=== PATIENT | female | born 1985 | race Caucasian/White ===

== ENCOUNTER → 2018-10-19 | Outpatient (CLI) | payer OTHER ==
[~2018-10-19] MED LIST: ACET50TA PO; ANUS2.5C2 TOP; IBUP80TA PO; PERCOCET PO
--- NOTE | 2018-10-20 01:18 | REP ---
Clinical: Pain. Technique: AP, lateral, bilateral oblique views of the right hand. Findings: Mild increased sclerosis and joint space narrowing at the first metacarpophalangeal joint and radiocarpal line noted. The remainder of the joint spaces and osseous structures are normal for age. The surrounding soft tissues are grossly unremarkable. Impression: Mild degenerative changes suggested at the first MCP and radiocarpal joint. Electronically Signed by Cesar Bhatia MD 10/20/2018 01:10 A
== END ==
LOC: M WUC 13:09
PROVIDERS: ATTEND Physician Assistant
DX: M19.031 Primary osteoarthritis, right wrist (principal); M25.541 Pain in joints of right hand

== ENCOUNTER 2018-10-27 10:20 | Emergency (ER) | payer OTHER ==
[~2018-10-27] VITALS: Ht 162.6 cm; Wt 50.9 kg
[2018-10-27 10:21] VITALS: BP 113/57
== END 2018-10-27 11:00 | disposition home or self-care (01) ==
LOC: M ED 10:20
DX: I73.00 Raynaud's syndrome without gangrene (principal); F32.9 Major depressive disorder, single episode, unspecified; J45.909 Unspecified asthma, uncomplicated; Z88.5 Allergy status to narcotic agent; Z91.040 Latex allergy status

== ENCOUNTER 2018-10-30 17:59 | Emergency (ER) | payer OTHER ==
[~2018-10-30] VITALS: Ht 162.6 cm; Wt 50.0 kg
[2018-10-30] MEDS ORDERED: CYCL10TA (18:07)
[2018-10-30] MEDS ORDERED: FLUO20SO (18:07)
[2018-10-30] MEDS ORDERED: IBUP100S5 (18:07)
[2018-10-30] MEDS ORDERED: KETOROLAC 30 MG/ML VIAL (J1885) IV ONE (20:00)
[2018-10-30] MEDS ORDERED: diphenhydrAMINE INJ 50MG/ML VIAL (J1200) IV ONE (20:00)
[2018-10-30] MEDS ORDERED: METOCLOPRAMIDE INJ 10MG/2ML VIAL (J2765) IV ONE (20:00)
[2018-10-30 21:20] VITALS: BP 128/71
== END 2018-10-30 21:20 | disposition home or self-care (01) ==
LOC: M ED 17:59
DX: G43.909 Migraine, unspecified, not intractable, without status migrainosus (principal); T43.225A Adverse effect of selective serotonin reuptake inhibitors, initial encounter; I10 Essential (primary) hypertension; F17.210 Nicotine dependence, cigarettes, uncomplicated; Z88.5 Allergy status to narcotic agent; Z88.8 Allergy status to other drugs, medicaments and biological substances; Z91.040 Latex allergy status; Z79.899 Other long term (current) drug therapy
CPT/HCPCS: 96374; 96375; 99284; J1200; J1885; J2765

== ENCOUNTER → 2019-02-28 | Outpatient (CLI) | payer OTHER ==
[~2019-02-28] MED LIST changes: -ACET50TA PO; +CYCL10TA; +FLUO20SO; +IBUP100S65; +MAPA500T17 PO; +OXYC1TAB23 PO; -PERCOCET PO
--- NOTE | 2019-02-28 10:31 | REP ---
MAXILLOFACIAL CT STUDY: HISTORY: Nasal polyp. No comparison maxillofacial imaging. CT FINDINGS: Preliminary digital barking machine feeder radiograph and axial CT images demonstrate a right periorbital subcutaneous jewelry. No intraorbital soft tissue lesion is seen. The visualized intracranial structures are unremarkable. The left frontal sinus is clear. The right frontal sinus is hypoplastic. Ethmoid, sphenoid, and maxillary sinuses are clear. The right maxillary sinus is developmentally small compared to the left. There is mucosal thickening obscuring the ostiomeatal complex on the left and to a lesser extent on the right. The anterior nasal septum bows somewhat to the right. The more posterior segment of the bony nasal septum deviates somewhat to the left with a small beak. Nasal turbinate soft tissues are unremarkable. No nasal polyp is visualized. The nasal ethmoid recesses appear clear. IMPRESSION: No nasal polyp seen. Some nasal septal deviation as above. Asymmetric size maxillary sinuses. Mucosal thickening obscures the ostiomeatal complexes bilaterally. Electronically Signed by Cameron Salmon MD 02/28/2019 11:14 A
== END ==
LOC: M RAD 09:33
PROVIDERS: ATTEND Otolaryngology
DX: R59.0 Localized enlarged lymph nodes (principal)

== ENCOUNTER 2019-07-04 20:30 | Emergency (ER) | payer OTHER ==
[~2019-07-04] VITALS: Ht 162.6 cm; Wt 52.2 kg
[2019-07-04 23:44] VITALS: BP 114/67
[2019-07-04] MEDS ORDERED: KETOROLAC 60 MG/2 ML VIAL (J1885) IM ONE (23:45)
[2019-07-04] MEDS ORDERED: ACETAMINOPHEN/CODEINE 300MG/30MG 12.5 ML UDC PO ONE ×2 (23:45)
== END 2019-07-05 00:33 | disposition home or self-care (01) ==
LOC: M ED 20:30
DX: K02.9 Dental caries, unspecified (principal); K08.89 Other specified disorders of teeth and supporting structures; F17.200 Nicotine dependence, unspecified, uncomplicated; Z91.040 Latex allergy status; Z88.8 Allergy status to other drugs, medicaments and biological substances; Z88.5 Allergy status to narcotic agent
CPT/HCPCS: 96372; 99283; J1885

== ENCOUNTER 2019-07-09 10:12 | Emergency (ER) | payer OTHER ==
[~2019-07-09] VITALS: Ht 165.1 cm; Wt 50.6 kg
[2019-07-09 10:13] VITALS: BP 119/58
--- NOTE | 2019-07-09 11:08 | REP ---
Clinical: Pain. Technique: Internal rotation, external rotation, and Y view left shoulder. Findings: No acute fracture or dislocation. The acromioclavicular and glenohumeral joints are intact. No periarticular calcifications or degenerative changes are appreciated. Sub acromial space is normal. Surrounding soft tissues are unremarkable. Impression: Normal left shoulder radiographs. Electronically Signed by Cesar Bhatia MD 07/09/2019 10:59 A
== END 2019-07-09 11:55 | disposition home or self-care (01) ==
LOC: M ED 10:12
DX: S46.811A Strain of other muscles, fascia and tendons at shoulder and upper arm level, right arm, initial encounter (principal); W22.09XA Striking against other stationary object, initial encounter; Y92.59 Other trade areas as the place of occurrence of the external cause; Y93.89 Activity, other specified; Y99.0 Civilian activity done for income or pay; F17.200 Nicotine dependence, unspecified, uncomplicated; Z88.8 Allergy status to other drugs, medicaments and biological substances; Z91.040 Latex allergy status; Z88.5 Allergy status to narcotic agent

== ENCOUNTER 2019-10-20 22:21 | Emergency (ER) | payer OTHER ==
[~2019-10-20] VITALS: Ht 165.1 cm; Wt 49.2 kg
[2019-10-20] MEDS ORDERED: KETOROLAC 30 MG/ML VIAL (J1885) IV ONE (23:00)
[2019-10-20] MEDS ORDERED: NS 1,000 ML IV ONE (23:00)
--- NOTE | 2019-10-20 23:45 | REPVR ---
PROCEDURE INFORMATION: Exam: US Retroperitoneal Limited, Kidneys Exam date and time: 10/20/2019 11:18 PM Age: 33 years old Clinical indication: Abdominal pain; Flank; Right; Additional info: Right flank pain TECHNIQUE: Imaging protocol: Real-time ultrasound of the retroperitoneum with image documentation. Examination was focused on the kidneys. COMPARISON: No relevant prior studies available. FINDINGS: Right kidney: The right kidney measures 10.8 cm in its cephalocaudad dimension and 4.7 x 4.1 cm in diameter. No mass, cyst or hydronephrosis. No calculi. Left kidney: The left kidney measures 10.5 cm in its cephalocaudad dimension and 4.9 x 3.2 cm in diameter. No mass, cyst or hydronephrosis. No calculi. Bladder: The urinary bladder is incompletely filled. A left ureteral jet is seen. IMPRESSION: Negative renal sonogram. No hydronephrosis and no stones are seen. Electronically signed by: Buzz Rubio On 10/20/2019 23:44:05 PM
[2019-10-21 00:04] LABS: ALBUMIN 4.6 GM/DL (3.2-5.2); BILIRUBIN,DIRECT 0.1 MG/DL (0.0-0.2); BILIRUBIN,TOTAL 0.2 MG/DL (0.2-1.0); TOTAL PROTEIN 7.9 GM/DL (6.4-8.2)
[2019-10-21 00:08] LABS: BASO % 0.6 % (0.0-1.0); EOS # 0.1 10^3/uL (0.0-0.5); HEMATOCRIT 44.7 % (36.0-47.0); HEMOGLOBIN 14.2 g/dl (12.0-15.5); LYMPH # 1.6 10^3/uL (1.5-5.0); LYMPH % 31.6 % (24.0-44.0); MEAN CORPUSCULAR HEMOGLOBIN 29.5 pg (27.0-33.0); MEAN CORPUSCULAR HGB CONC 31.8 g/dl (32.0-36.5); MEAN CORPUSCULAR VOLUME 92.9 fl (80.0-96.0); MONO # 0.5 10^3/uL (0.0-0.8); MONO % 9.1 % (0.0-5.0); NEUTROPHILS # 2.9 10^3/uL (1.5-8.5); NEUTROPHILS % 56.5 % (36.0-66.0); PLATELET COUNT, AUTOMATED 203 10^3/uL (150-450); RED BLOOD COUNT 4.81 10^6/uL (4.00-5.40); WHITE BLOOD COUNT 5.1 10^3/uL (4.0-10.0)
[2019-10-21] MEDS ORDERED: CYCL5TAB PO (00:36)
[2019-10-21] MEDS ORDERED: GABA-1171 PO (00:36)
[2019-10-21] MEDS ORDERED: KETO10TAB PO (00:36)
[2019-10-21 00:51] VITALS: BP 105/66
== END 2019-10-21 00:55 | disposition home or self-care (01) ==
LOC: M ED 22:21
DX: M54.31 Sciatica, right side (principal); G43.909 Migraine, unspecified, not intractable, without status migrainosus; G89.29 Other chronic pain; J45.909 Unspecified asthma, uncomplicated; F17.200 Nicotine dependence, unspecified, uncomplicated; Z88.5 Allergy status to narcotic agent; Z88.8 Allergy status to other drugs, medicaments and biological substances; Z91.040 Latex allergy status
CPT/HCPCS: 76775; 80047; 80076; 81001; 83690; 84702; 85025; 96374; 99284; J1885

== ENCOUNTER 2019-11-20 17:45 | Emergency (ER) | payer OTHER ==
[~2019-11-20] VITALS: Ht 165.1 cm; Wt 50.6 kg
[~2019-11-20 17:45] MED LIST changes: +CYCL5TAB PO; +GABA-1171 PO; +KETO10TAB PO
[2019-11-20] MEDS ORDERED: PYRI1TAB5 PO (19:32)
[2019-11-20] MEDS ORDERED: BACT800T5 PO (19:32)
[2019-11-20 19:34] VITALS: BP 118/65
[2019-11-20] MEDS ORDERED: SULF200S10 PO (19:37)
== END 2019-11-20 19:41 | disposition home or self-care (01) ==
LOC: M ED 17:45
DX: N39.0 Urinary tract infection, site not specified (principal); F17.200 Nicotine dependence, unspecified, uncomplicated; Z88.5 Allergy status to narcotic agent; Z88.8 Allergy status to other drugs, medicaments and biological substances; Z91.040 Latex allergy status

== ENCOUNTER 2020-04-23 10:50 | Day surgery (SDC) | payer OTHER ==
[~2020-04-23 10:50] MED LIST changes: +BACT800T5 PO; +CYCL-707; -CYCL10TA; +PYRI1TAB5 PO; +SULF200S10 PO
[2020-04-23] MEDS ORDERED: fentaNYL 100 MCG/2 ML INJECTION (J3010) As Ordered ONE (12:15)
[2020-04-23] MEDS ORDERED: propofoL 200 MG/20 ML VIAL As Ordered ONE (12:23)
[2020-04-23] MEDS ORDERED: LIDOCAINE 2% 100MG/5ML SDV (FOR ANES.) As Ordered ONE (12:24)
--- NOTE | 2020-05-21 11:28 | ROOR ---
Patient Name: Pauline Castano Procedure Date: 04/23/2020 12:00 PM Date of : 1985 Age: 34 Room: 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 Procedure: Pre-Anesthesia Assessment: - The heart rate, respiratory rate, oxygen saturations, blood pressure, adequacy of pulmonary ventilation, and response to care were monitored throughout the procedure. The Endoscope was introduced through the mouth, and advanced to the second part of duodenum. The upper GI endoscopy was accomplished without difficulty. The patient tolerated the procedure well. Findings: The Z-line was variable and was found 40 cm from the incisors. Multiple biopsies were obtained with cold forceps for evaluation to rule out Haywood's Esophagus randomly at the gastroesophageal junction. A small hiatal hernia was present. No other significant abnormalities were identified in a careful examination of the stomach. Biopsies were taken with a cold forceps in the gastric antrum for Helicobacter pylori testing. The exam of the duodenum was otherwise normal. Biopsies for histology were taken with a cold forceps in the first portion of the duodenum for evaluation of celiac disease. The exam was otherwise without abnormality. Impression: - Z-line variable, 40 cm from the incisors. - Small hiatal hernia. - The examination was otherwise normal. - Multiple biopsies were obtained at the gastroesophageal junction. - Biopsies were taken with a cold forceps for Helicobacter pylori testing. - Biopsies were taken with a cold forceps for evaluation of celiac disease. - The examination was otherwise normal. Recommendation: - Patient has a contact number available for emergencies. The signs and symptoms of potential delayed complications were discussed with the patient. Return to normal activities tomorrow. Written discharge instructions were provided to the patient. - High fiber diet. - Discharge patient to home. - Follow an antireflux regimen. - Continue present medications. - Await pathology results. - Telephone GI clinic for pathology results in 1 week. - Repeat upper endoscopy for surveillance based on pathology results. - Return to referring physician. - The findings and recommendations were discussed with the patient. Juventino Haq MD 04/23/2020 12:27:25 PM Number of Addenda: 0 Note Initiated On: 04/23/2020 12:00 PM Estimated Blood Loss: Estimated blood loss: none.
== END 2020-04-23 13:00 | disposition home or self-care (01) ==
LOC: M SDC 10:50
PROVIDERS: ATTEND Internal Medicine Gastroenterology
DX: K22.8 Other specified diseases of esophagus (principal); K44.9 Diaphragmatic hernia without obstruction or gangrene; K29.70 Gastritis, unspecified, without bleeding; R10.13 Epigastric pain; R11.2 Nausea with vomiting, unspecified; R63.4 Abnormal weight loss; J44.9 Chronic obstructive pulmonary disease, unspecified; Z88.5 Allergy status to narcotic agent; Z88.8 Allergy status to other drugs, medicaments and biological substances; Z91.040 Latex allergy status
CPT/HCPCS: 43239; 88305; J3010

== ENCOUNTER 2020-09-21 13:13 | Emergency (ER) | payer OTHER ==
[~2020-09-21] VITALS: Ht 165.1 cm; Wt 48.2 kg
--- NOTE | 2020-09-21 13:46 | REP ---
INDICATION: fall injury COMPARISON: None. TECHNIQUE: AP, lateral, bilateral oblique views of the right elbow. FINDINGS: No acute fracture or dislocation is appreciated. Joint spaces and surrounding soft tissues appear normal. Lateral view demonstrates normal positioning to the anterior and posterior fat pads without evidence for effusion/hemarthrosis. No subcutaneous emphysema or foreign body identified. IMPRESSION: No acute fracture or dislocation. <Electronically signed by eCsar Bhatia > 09/21/20 [id number]
[2020-09-21] MEDS ORDERED: IBUPROFEN 100 MG/5 ML SUSP UDC DYE FREE PO ONE (14:30)
[2020-09-21] MEDS ORDERED: VOLT1GEL15 TOP (14:34)
[2020-09-21 14:41] VITALS: BP 110/76
== END 2020-09-21 15:04 | disposition home or self-care (01) ==
LOC: M ED 13:13
DX: M25.521 Pain in right elbow (principal); W22.8XXA Striking against or struck by other objects, initial encounter; Y92.89 Other specified places as the place of occurrence of the external cause; Y93.89 Activity, other specified; Y99.0 Civilian activity done for income or pay; R51.9 Headache, unspecified; J45.909 Unspecified asthma, uncomplicated; F41.9 Anxiety disorder, unspecified; F17.200 Nicotine dependence, unspecified, uncomplicated; Z88.5 Allergy status to narcotic agent; Z88.8 Allergy status to other drugs, medicaments and biological substances; Z91.040 Latex allergy status

== ENCOUNTER 2020-12-16 21:10 | Emergency (ER) | payer OTHER ==
[~2020-12-16] VITALS: Ht 165.1 cm; Wt 49.8 kg
[~2020-12-16 21:10] MED LIST changes: +VOLT1GEL15 TOP
[2020-12-16 21:11] VITALS: BP 119/65
[2020-12-16 22:20] LABS: BASO # 0.1 10^3/uL (0.0-0.2); BASO % 0.8 % (0.0-1.0); EOS # 0.2 10^3/uL (0.0-0.5); EOS % 1.9 % (0.0-3.0); HEMATOCRIT 38.6 % (36.0-47.0); HEMOGLOBIN 12.5 g/dl (12.0-15.5); LYMPH # 2.8 10^3/uL (1.5-5.0); LYMPH % 35.2 % (24.0-44.0); MEAN CORPUSCULAR HEMOGLOBIN 30.8 pg (27.0-33.0); MEAN CORPUSCULAR HGB CONC 32.4 g/dl (32.0-36.5); MEAN CORPUSCULAR VOLUME 95.1 fl (80.0-96.0); MONO # 0.5 10^3/uL (0.0-0.8); MONO % 5.9 % (2.0-8.0); NEUTROPHILS # 4.4 10^3/uL (1.5-8.5); NEUTROPHILS % 56.1 % (36.0-66.0); PLATELET COUNT, AUTOMATED 186 10^3/uL (150-450); RED BLOOD COUNT 4.06 10^6/uL (4.00-5.40); WHITE BLOOD COUNT 7.8 10^3/uL (4.0-10.0)
[2020-12-16 22:52] LABS: ERYTHROCYTE SEDIMENTATION RATE 6 mm/hr (0-20)
[2020-12-16 22:55] LABS: ALT/SGPT 20 U/L (12-78); BILIRUBIN,DIRECT < 0.1 MG/DL (0.0-0.2); BILIRUBIN,TOTAL 0.3 MG/DL (0.2-1.0); C REACTIVE PROTEIN QUANTITATIV < 0.30 MG/DL (0.00-0.30); TOTAL PROTEIN 6.7 GM/DL (6.4-8.2)
--- NOTE | 2020-12-16 23:24 | REPVR ---
PROCEDURE INFORMATION: Exam: XR Left Hand Exam date and time: 12/16/2020 10:50 PM Age: 35 years old Clinical indication: Hand; Left; Patient HX: States 2nd mp area with pain; Additional info: Swelling/pain TECHNIQUE: Imaging protocol: XR Left hand. Views: 3 or more views. COMPARISON: No relevant prior studies available. FINDINGS: Bones/joints: Changes of prior ORIF of the middle finger DIP joint. There is severe osteoarthritis and mild radial subluxation of the ring finger distal phalanx at the DIP joint. Remaining joint spaces are unremarkable. No fracture or other malalignment. Soft tissues: Normal. 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 Electronically signed by: Bladimir Black On 12/16/2020 23:24:25 PM
== END 2020-12-16 23:38 | disposition home or self-care (01) ==
LOC: M ED 21:10
DX: M19.042 Primary osteoarthritis, left hand (principal); J45.909 Unspecified asthma, uncomplicated; R51.9 Headache, unspecified; Z87.891 Personal history of nicotine dependence; Z88.5 Allergy status to narcotic agent; Z88.8 Allergy status to other drugs, medicaments and biological substances; Z91.040 Latex allergy status

== ENCOUNTER 2021-01-28 11:19 | Emergency (ER) | payer OTHER ==
[~2021-01-28] VITALS: Ht 165.1 cm; Wt 48.2 kg
[2021-01-28 11:20] VITALS: BP 109/56
[2021-01-28] MEDS ORDERED: KETOROLAC 60MG 2ML VIAL IM ONE (13:40)
--- NOTE | 2021-01-28 13:47 | REP ---
INDICATION: injury while lifting/numbness legs. COMPARISON: None. FINDINGS: Five views of the lumbosacral spine show no acute fracture, dislocation or subluxation. The intervertebral disc spaces are symmetric and well maintained. There is no spondylolysis or spondylolisthesis. The pedicles are intact bilaterally and there is no destructive osseous lesion. IMPRESSION: Unremarkable lumbosacral spine series. <Electronically signed by Jose Mock > 01/28/21 [id number]
== END 2021-01-28 14:31 | disposition home or self-care (01) ==
LOC: M ED 11:19
DX: S39.012A Strain of muscle, fascia and tendon of lower back, initial encounter (principal); X58.XXXA Exposure to other specified factors, initial encounter; Y92.89 Other specified places as the place of occurrence of the external cause; Y93.89 Activity, other specified; Y99.8 Other external cause status; F17.290 Nicotine dependence, other tobacco product, uncomplicated; Z88.8 Allergy status to other drugs, medicaments and biological substances; Z91.040 Latex allergy status; Z86.69 Personal history of other diseases of the nervous system and sense organs
CPT/HCPCS: 72110; 81001; 96372; 99282; J1885

== ENCOUNTER 2021-02-27 15:24 | Emergency (ER) | payer OTHER ==
[~2021-02-27] VITALS: Ht 165.1 cm; Wt 48.0 kg
[2021-02-27 15:24] VITALS: BP 144/59
--- NOTE | 2021-02-27 17:13 | REP ---
INDICATION: crushed in car door COMPARISON: None TECHNIQUE: Five views FINDINGS: The compartments are symmetric and relatively well maintained. There is no acute fracture or destructive osseous lesion. IMPRESSION: Within normal limits <Electronically signed by Jose Mock > 02/27/21 [id number]
--- NOTE | 2021-02-27 19:24 | REP ---
INDICATION: severe pain popliteal fossa, hit with door 2 days ago. COMPARISON: None. TECHNIQUE: Ultrasonographic evaluation of the left lower extremity popliteal fossa FINDINGS: There are no cystic or solid masses. IMPRESSION: No abnormality seen ultrasonographically. <Electronically signed by Jose Mock > 02/27/21 [id number]
== END 2021-02-27 19:19 | disposition left against medical advice (07) ==
LOC: M ED 15:24
DX: M25.562 Pain in left knee (principal); Z53.9 Procedure and treatment not carried out, unspecified reason; W22.8XXA Striking against or struck by other objects, initial encounter; Y92.009 Unspecified place in unspecified non-institutional (private) residence as the place of occurrence of the external cause; Y93.9 Activity, unspecified; Y99.9 Unspecified external cause status; Z88.5 Allergy status to narcotic agent; Z88.8 Allergy status to other drugs, medicaments and biological substances; Z91.040 Latex allergy status

== ENCOUNTER → 2021-08-14 | Outpatient (CLI) | payer OTHER ==
[2021-08-14 13:47] LABS: BASO % 0.8 % (0.0-1.0); EOS # 0.1 10^3/uL (0.0-0.5); EOS % 1.1 % (0.0-3.0); HEMATOCRIT 39.9 % (36.0-47.0); HEMOGLOBIN 12.9 g/dl (12.0-15.5); LYMPH # 1.8 10^3/uL (1.5-5.0); LYMPH % 35.2 % (24.0-44.0); MEAN CORPUSCULAR HEMOGLOBIN 29.7 pg (27.0-33.0); MEAN CORPUSCULAR HGB CONC 32.3 g/dl (32.0-36.5); MEAN CORPUSCULAR VOLUME 91.7 fl (80.0-96.0); MONO # 0.3 10^3/uL (0.0-0.8); MONO % 5.9 % (2.0-8.0); NEUTROPHILS % 56.8 % (36.0-66.0); PLATELET COUNT, AUTOMATED 211 10^3/uL (150-450); RED BLOOD COUNT 4.35 10^6/uL (4.00-5.40); WHITE BLOOD COUNT 5.2 10^3/uL (4.0-10.0)
[2021-08-14 13:55] LABS: HEMOGLOBIN A1c 5.3 %
[2021-08-14 14:09] LABS: ERYTHROCYTE SEDIMENTATION RATE 7 mm/hr (0-20)
[2021-08-14 14:11] LABS: ALBUMIN 4.3 GM/DL (3.2-5.2); ALT/SGPT 18 U/L (12-78); BILIRUBIN,TOTAL 0.6 MG/DL (0.2-1.0); BLOOD UREA NITROGEN 14 MG/DL (7-18); CALCIUM LEVEL 9.8 MG/DL (8.5-10.1); CARBON DIOXIDE LEVEL 26 MEQ/L (21-32); CHLORIDE LEVEL 109 MEQ/L (98-107); CREATININE FOR GFR 0.87 MG/DL (0.55-1.30); FREE T4 1.02 NG/DL (0.76-1.46); FREE THYROXINE INDEX 3.2 % (1.3-4.8); GLOMERULAR FILTRATION RATE > 60.0 (>60); GLUCOSE, FASTING 93 MG/DL (70-100); POTASSIUM SERUM 3.9 MEQ/L (3.5-5.1); RHEUMATOID FACTOR QUANT < 10.0 IU/ML (<15.0); SODIUM LEVEL 141 MEQ/L (136-145); T UPTAKE 30 % (30-39); THYROID STIMULATING HORMONE 0.699 uIU/ML (0.358-3.740); THYROXINE (T4) 10.5 UG/DL (4.5-12.0); TOTAL PROTEIN 7.3 GM/DL (6.4-8.2)
[2021-08-14 14:15] LABS: VITAMIN B12 LEVEL 599 PG/ML
[2021-08-14 14:16] LABS: FOLATE 21.3 NG/ML
== END ==
LOC: M PLALAB 10:05
PROVIDERS: ATTEND Psychiatry & Neurology Neurology
DX: E07.9 Disorder of thyroid, unspecified (principal); E11.9 Type 2 diabetes mellitus without complications; R20.0 Anesthesia of skin; Z11.59 Encounter for screening for other viral diseases

== ENCOUNTER → 2021-09-17 | Outpatient (CLI) | payer OTHER | LOC: M LABSMTC 11:08 | PROVIDERS: ATTEND Pediatrics | DX: Z20.822 Contact with and (suspected) exposure to COVID-19 (principal) ==

== ENCOUNTER → 2023-07-05 | Outpatient (CLI) | payer OTHER ==
[~2023-07-05] MED LIST changes: -FLUO20SO; +FLUO20SO15; +HYDR-3363 PO; +PAXI30TA12 PO; -SULF200S10 PO; +SULF473O2 PO
== END ==
LOC: M LAB 16:01
PROVIDERS: ATTEND Nurse Practitioner Family
DX: R12 Heartburn (principal)

== ENCOUNTER 2023-07-22 09:29 | Day surgery (SDC) | payer OTHER ==
[~2023-07-22] VITALS: Ht 162.6 cm; Wt 48.3 kg
[~2023-07-22 09:29] MED LIST changes: +FAMO40SU9 PO; +NS 1,000 ML IV ONE; +SUCR1ORA PO
[2023-07-22] MEDS ORDERED: propofoL 200 MG/20 ML VIAL As Ordered ONE ×3 (11:56→12:17)
[2023-07-22] MEDS ORDERED: LIDOCAINE 2% 100MG/5ML SDV (FOR ANES.) As Ordered ONE (11:56)
[2023-07-22 12:29] VITALS: TEMP 97.1
[2023-07-22 12:43] VITALS: BP 99/64; O2SAT 18
== END 2023-07-22 12:57 | disposition home or self-care (01) ==
LOC: M OPP 09:29
PROVIDERS: ATTEND Internal Medicine Gastroenterology
DX: K63.5 Polyp of colon (principal); K64.8 Other hemorrhoids; K22.89 Other specified disease of esophagus; K29.70 Gastritis, unspecified, without bleeding; K21.9 Gastro-esophageal reflux disease without esophagitis; M19.90 Unspecified osteoarthritis, unspecified site; F41.9 Anxiety disorder, unspecified; F32.A Depression, unspecified; G43.909 Migraine, unspecified, not intractable, without status migrainosus; J45.909 Unspecified asthma, uncomplicated; F17.290 Nicotine dependence, other tobacco product, uncomplicated; E61.1 Iron deficiency; M54.9 Dorsalgia, unspecified; Z86.718 Personal history of other venous thrombosis and embolism; Z88.5 Allergy status to narcotic agent; Z88.8 Allergy status to other drugs, medicaments and biological substances; Z91.040 Latex allergy status; Z79.899 Other long term (current) drug therapy; Z80.3 Family history of malignant neoplasm of breast; Z80.8 Family history of malignant neoplasm of other organs or systems; Z83.3 Family history of diabetes mellitus; Z81.8 Family history of other mental and behavioral disorders

== ENCOUNTER → 2023-08-24 | Outpatient (CLI) | payer OTHER ==
[~2023-08-24] MED LIST changes: -NS 1,000 ML IV ONE
== END ==
LOC: M RAD 11:24
PROVIDERS: ATTEND Nurse Practitioner Family
DX: R11.0 Nausea (principal)

== ENCOUNTER → 2023-09-30 | Outpatient (CLI) | payer OTHER | LOC: M RAD 08:46 | PROVIDERS: ATTEND Nurse Practitioner Family | DX: K82.9 Disease of gallbladder, unspecified (principal); R10.9 Unspecified abdominal pain; R11.0 Nausea | CPT/HCPCS: 78227; A9537 ==

== ENCOUNTER 2023-10-13 14:07 | Emergency (ER) | payer OTHER ==
[~2023-10-13] VITALS: Ht 162.6 cm; Wt 51.0 kg
[2023-10-13] MEDS ORDERED: PARO10OR (14:21)
[2023-10-13] MEDS ORDERED: ONDANSETRON 4MG 2ML VIAL IV ONE (15:00)
[2023-10-13] MEDS ORDERED: NS 1,000 ML IV ONE (15:00)
[2023-10-13] MEDS ORDERED: MORPHINE 4 MG/ML 1ML VIAL IV ONE (15:00)
[2023-10-13 15:10] LABS: BASO % 0.6 % (0.0-1.0); EOS # 0.2 10^3/uL (0.0-0.5); EOS % 4.2 % (0.0-3.0); HEMATOCRIT 39.7 % (36.0-47.0); HEMOGLOBIN 12.9 g/dl (12.0-15.5); LYMPH # 2.1 10^3/uL (1.5-5.0); LYMPH % 37.8 % (24.0-44.0); MEAN CORPUSCULAR HEMOGLOBIN 30.4 pg (27.0-33.0); MEAN CORPUSCULAR HGB CONC 32.5 g/dl (32.0-36.5); MEAN CORPUSCULAR VOLUME 93.6 fl (80.0-96.0); MONO # 0.2 10^3/uL (0.0-0.8); MONO % 4.4 % (2.0-8.0); NEUTROPHILS # 2.9 10^3/uL (1.5-8.5); NEUTROPHILS % 52.6 % (36.0-66.0); PLATELET COUNT, AUTOMATED 180 10^3/uL (150-450); RED BLOOD COUNT 4.24 10^6/uL (4.00-5.40); WHITE BLOOD COUNT 5.4 10^3/uL (4.0-10.0)
[2023-10-13 15:22] LABS: INR 1.01
[2023-10-13 15:23] LABS: PARTIAL THROMBOPLASTIN TIME 29.9 SECONDS (24.8-34.2)
[2023-10-13 15:34] LABS: LIPASE 32 U/L (12-53)
[2023-10-13 15:36] LABS: ALBUMIN 3.8 G/DL (3.2-5.2); ALKALINE PHOSPHATASE 56 U/L (46-116); ALT/SGPT 12 U/L (7.0-40); AMYLASE 51 U/L (30-118); AST/SGOT 10 U/L (<34); BILIRUBIN,DIRECT < 0.1 MG/DL (<0.4); BILIRUBIN,TOTAL 0.2 MG/DL (0.3-1.2); TOTAL PROTEIN 6.8 G/DL (5.7-8.2)
[2023-10-13 15:42] LABS: HCG, SERUM QUALITATIVE NEGATIVE (NEGATIVE)
[2023-10-13 15:44] LABS: RSV AMPLIFICATION NEGATIVE (NEGATIVE)
[2023-10-13] MEDS ORDERED: KETOROLAC 30 MG/ML 1ML VIAL IV ONE (16:20)
[2023-10-13] MEDS ORDERED: SUCRALFATE SUSP 1GM/10ML UD PO ONE (16:20)
[2023-10-13] MEDS ORDERED: [UNRECOGNIZED DRUG - CODE] PO (16:41)
[2023-10-13 17:38] VITALS: BP 109/52; TEMP 97.7; O2SAT 100
== END 2023-10-13 17:41 | disposition home or self-care (01) ==
LOC: M ED 14:07
DX: U07.1 COVID-19 (principal); K80.67 Calculus of gallbladder and bile duct with acute and chronic cholecystitis with obstruction; J45.909 Unspecified asthma, uncomplicated; F41.9 Anxiety disorder, unspecified; Z91.040 Latex allergy status; Z88.8 Allergy status to other drugs, medicaments and biological substances; Z79.899 Other long term (current) drug therapy; Z79.810 Long term (current) use of selective estrogen receptor modulators (SERMs)
CPT/HCPCS: 76705; 80047; 80076; 82150; 83605; 83690; 84702; 84703; 85025; 85610; 85730; 87428; 87631; 96361; 96374; 96375; 99284; J1885; J2405

== ENCOUNTER 2023-11-10 11:35 | Day surgery (SDC) | payer OTHER ==
[~2023-11-10] VITALS: Ht 162.6 cm; Wt 49.4 kg
[~2023-11-10 11:35] MED LIST changes: +ACETAMINOPHEN 1000MG 100ML IV BAG As Ordered ONE; +IBUP-1022 PO; +LIDOCAINE 2% 100MG/5ML SDV (FOR ANES.) As Ordered ONE; +MIDAZOLAM INJ 2MG/2ML VIAL As Ordered ONE; +ONDANSETRON 4MG 2ML VIAL As Ordered ONE; +PARO10OR; +ROCURONIUM BROMIDE 50MG/5ML VIAL As Ordered ONE; +[UNRECOGNIZED DRUG - CODE] PO; +fentaNYL 100 MCG/2 ML INJECTION As Ordered ONE; +propofoL 200 MG/20 ML VIAL As Ordered ONE
[2023-11-10] MEDS ORDERED: dexmedeTOMIDine (4MCG/ML)200MCG/50ML BTL (PRECEDEX) As Ordered ONE (11:37)
[2023-11-10] MEDS ORDERED: LR 1,000 ML IV SCH ×2 (11:55→13:40)
[2023-11-10] MEDS: INDOCYANINE GREEN 25MG VIAL (IC-GREEN) IV ONE (12:45)
[2023-11-10] MEDS: ceFAZolin SOD 2 GM in IV 1 EA IV ONE (12:48)
[2023-11-10] MEDS: HEPARIN SOD (PORCINE) 5000UNITS/ML 1ML VIAL/SYRINGE SQ ONE (12:55)
[2023-11-10] MEDS: SCOPOLAMINE 1MG TRANSDERMAL PATCH As Ordered ONE (13:08)
[2023-11-10] MEDS ORDERED: METOCLOPRAMIDE INJ 10MG/2ML VIAL As Ordered ONE (13:13)
[2023-11-10] MEDS ORDERED: ESMOLOL INJ 100MG/10ML VIAL As Ordered ONE (13:18)
[2023-11-10] MEDS ORDERED: KETOROLAC 60MG 2ML VIAL As Ordered ONE (13:21)
[2023-11-10] MEDS ORDERED: SUGAMMADEX SODIUM 500 MG/5 ML VIAL (BRIDION) As Ordered ONE (13:21)
[2023-11-10] MEDS ORDERED: LABETALOL 100MG/20ML VIAL As Ordered ONE (13:26)
[2023-11-10] MEDS: ONDANSETRON 4MG 2ML VIAL IV PRN (14:11)
[2023-11-10] MEDS: fentaNYL 100 MCG/2 ML INJECTION IV PRN (14:12)
[2023-11-10] MEDS: oxyCODONE 5MG TAB PO PRN (14:45)
[2023-11-10 15:05] VITALS: BP 142/80; TEMP 97.9; O2SAT 99
== END 2023-11-10 15:45 | disposition home or self-care (01) ==
LOC: M SDC 11:35
PROVIDERS: ATTEND Surgery
DX: K82.8 Other specified diseases of gallbladder (principal); I73.9 Peripheral vascular disease, unspecified; K21.9 Gastro-esophageal reflux disease without esophagitis; F41.9 Anxiety disorder, unspecified; F32.A Depression, unspecified; F12.10 Cannabis abuse, uncomplicated; F17.200 Nicotine dependence, unspecified, uncomplicated; Z91.040 Latex allergy status; Z88.5 Allergy status to narcotic agent; G43.909 Migraine, unspecified, not intractable, without status migrainosus; Z86.16 Personal history of COVID-19; J45.909 Unspecified asthma, uncomplicated
CPT/HCPCS: 47562; 88304; J0131; J0665; J0690; J1100; J1805; J1885; J1920; J2250; J2405; J2765; J3010; Q9968; S2900